=== PATIENT | male | born 1980 | race African-American/Black ===

== ENCOUNTER 2016-11-03 11:41 | Emergency (ER) | payer OTHER ==
[~2016-11-03] VITALS: Ht 177.8 cm; Wt 77.5 kg
[~2016-11-03 11:41] MED LIST: AZITHROMYCIN250 MG PO; BACTRIM,SEPT1 TABLET PO; CLINDAMYCIN HC300 MG PO; KEFLEX500 MG PO; MUPIROCIN15 GM TP; NAPROSYN500 MG PO; NOHOMEMEDS; PREDNISONE20 MG PO; PREDNISONE50 MG PO; PROAIR HFA8.5 GM IH; ROBITUSSIN AC,T10 ML PO; ULTRAM50 MG PO; ZITHROMAX250 MG PO
[2016-11-03] MEDS ORDERED: VENTOLIN HFA18 GM IH (13:14)
[2016-11-03] MEDS ORDERED: PREDNISONE20 MG PO (13:14)
[2016-11-03] MEDS ORDERED: ZITHROMAX Z-PA250 MG PO (13:14)
[2016-11-03 13:29] VITALS: BP 148/95
== END 2016-11-03 13:43 | disposition home or self-care (01) ==
LOC: EME 11:41
DX: J40 Bronchitis, not specified as acute or chronic (principal); F17.200 Nicotine dependence, unspecified, uncomplicated
CPT/HCPCS: 71020; 94640; 99281; 99283; J7512; J7644

== ENCOUNTER 2017-06-09 17:54 | Emergency (ER) | payer OTHER ==
[~2017-06-09] VITALS: Ht 177.8 cm; Wt 79.0 kg
[~2017-06-09 17:54] MED LIST changes: +VENTOLIN HFA18 GM IH; +ZITHROMAX Z-PA250 MG PO
[2017-06-09] MEDS ORDERED: PREDNISONE50 MG PO (20:08)
[2017-06-09 20:19] VITALS: BP 132/89
== END 2017-06-09 20:23 | disposition home or self-care (01) ==
LOC: EME 17:54
DX: J45.909 Unspecified asthma, uncomplicated (principal); F17.200 Nicotine dependence, unspecified, uncomplicated
CPT/HCPCS: 94644; 99281; 99284; J0171; J1100; J3475; J7644

== ENCOUNTER 2017-11-14 01:28 | Inpatient (IN) | payer OTHER ==
[~2017-11-14] VITALS: Ht 182.9 cm; Wt 94.1 kg
[2017-11-14] VITALS (16 sets, daily range): BP systolic 85–141; BP diastolic 56–87
[2017-11-14 01:47] LABS: BASOPHIL (%) 0.6 % (0-1); EOSINOPHIL (%) 3.9 % (0-5); EOSINOPHIL COUNT 0.3 K/uL (0-0.3); HEMATOCRIT 42.1 % (38.0-50.0); HEMOGLOBIN 12.3 G/DL (12.5-16.6); IMMATURE GRANULOCYTE (%) 0.7 % (0.0-0.7); LYMPHOCYTE (%) 63.7 % (15-42); LYMPHOCYTE COUNT 4.3 K/uL (1.0-2.8); MCH 23.8 PG (29.0-34.0); MCHC 29.2 G/DL (30.0-36.0); MCV 81.6 FL (86-99); MONOCYTE (%) 11.4 % (3-12); MONOCYTE COUNT 0.8 K/uL (0-0.8); NEUTROPHIL (%) 19.7 % (45-76); NEUTROPHIL COUNT 1.3 K/uL (1.8-6.4); PLATELET COUNT 285 K/uL (156-360); RBC DIS.WIDTH-CV 15.9 % (11.8-14.6); RBC DIS.WIDTH-SD 47.4 % (39-53); RED BLOOD COUNT 5.16 M/uL (4.00-5.50); WHITE BLOOD COUNT 6.7 K/uL (4.1-10.2)
[2017-11-14 01:57] LABS: INTER. NORMALIZED RATIO 1.3
[2017-11-14 02:00] LABS: PTT 33.6 SEC (25-37)
[2017-11-14 02:13] LABS: APPEARANCE CLOUDY ((CLEAR)); BILIRUBIN NEGATIVE; BLOOD MODERATE; COLOR YELLOW ((YELLOW)); GLUCOSE (STRIP) NEGATIVE; KETONES NEGATIVE; LEUKOCYTES NEGATIVE; NITRITE NEGATIVE; PROTEIN (STRIP) >=500; SPECIFIC GRAVITY 1.027 (1.000-1.030); UROBILINOGEN 0.2 MG/DL (0.2-1.0)
[2017-11-14 02:13] LABS: TROP-I INTERPRETATION NEGATIVE; TROPONIN-I 0.01 ng/mL (0.0-0.30)
[2017-11-14 02:24] LABS: AMPHETAMINE NEGATIVE (500 ng/mL); BENZODIAZEPINES PRESUMPTIVE POSITIVE (150 ng/mL); COCAINE PRESUMPTIVE POSITIVE (150 ng/mL); METHADONE NEGATIVE (200 ng/mL); METHAMPHETAMINE PRESUMPTIVE POSITIVE (500 ng/mL); OPIATES (MORPHINE) PRESUMPTIVE POSITIVE (100 ng/mL); PHENCYCLIDINE PRESUMPTIVE POSITIVE (25 ng/mL); THC CANNABINOIDS PRESUMPTIVE POSITIVE (50 ng/mL); TRICYCLIC ANTIDEPRESSANTS NEGATIVE (300 ng/mL)
[2017-11-14 02:25] LABS: BARBITURATES NEGATIVE (200 ng/mL); BUPRENORPHINE NEGATIVE (10 ng/mL); OXYCODONE NEGATIVE (100 ng/mL); PROPOXYPHENE NEGATIVE (300 ng/mL)
[2017-11-14 02:38] LABS: BACTERIA 3+ /HPF; EPITHELIAL CELLS 1+ /HPF; MUCUS 1+ /LPF; RED BLOOD CELLS 20-30 /HPF (0-5); UCUL ADDED? YES; WHITE BLOOD CELLS 15-20 /HPF (0-5)
[2017-11-14 02:40] LABS: AMYLASE 141 IU/L (1-118); CHLORIDE 101 mEq/L (99-109); POTASSIUM 4.4 mEq/L (3.7-5.4); SODIUM 141 mEq/L (136-147)
[2017-11-14 02:41] LABS: GLUCOSE 68 mg/dL (70-99)
[2017-11-14 02:45] LABS: CREATININE 2.1 mg/dL (0.6-1.3); GFR ESTIMATE (CALCULATED) 46 mL/min/ (58.99-99999); SERUM ETHYL ALCOHOL < 10 mg/dL
[2017-11-14 02:46] LABS: UREA NITROGEN (BUN) 14 mg/dL (9-23)
[2017-11-14 02:48] LABS: LIPASE 41 U/L (1.0-51.0)
[2017-11-14 04:08] LABS: BASE EXCESS -7.9 mEq/L (-3 to +3); BICARBONATE 22.4 mEq/L (22-26); CARBOXY HGB 3.9 % (0-5); COMMENTS - BLOOD GASES C+; DEVICE VENT; FI02 100 %; MECHANICAL RATE 18 resp/min; METHEMOGLOBIN 1.4 % (0-1.5); MODE A/C; PCO2 69 mm Hg (35-45); PEEP 5 CM/H20; PO2 338 mm Hg (80-100); SITE RR; TIDAL VOLUME 450 ML; TOTAL RESP RATE 18 resp/min; pH 7.12 (7.35-7.45)
[2017-11-14 05:00] LABS: BASE EXCESS -8.5 mEq/L (-3 to +3); BICARBONATE 20.2 mEq/L (22-26); CARBOXY HGB 3.4 % (0-5); COMMENTS - BLOOD GASES C+; DEVICE VENT; FI02 80 %; MECHANICAL RATE 30 resp/min; METHEMOGLOBIN 1.5 % (0-1.5); MODE A/C; PCO2 54 mm Hg (35-45); PEEP 5 CM/H20; PO2 59 mm Hg (80-100); SITE RR; TIDAL VOLUME 450 ML; TOTAL RESP RATE 30 resp/min; pH 7.18 (7.35-7.45)
[2017-11-14 05:47] LABS: BENZODIAZEPINES, URINE SCREEN POSITIVE (200 ng/mL)
[2017-11-14 08:23] LABS: HEMOGLOBIN 13.7 G/DL (12.5-16.6); MCH 23.3 PG (29.0-34.0); MCHC 29.8 G/DL (30.0-36.0); MCV 78.4 FL (86-99); PLATELET COUNT 247 K/uL (156-360); RBC DIS.WIDTH-CV 16.6 % (11.8-14.6); RBC DIS.WIDTH-SD 46.3 % (39-53); RED BLOOD COUNT 5.87 M/uL (4.00-5.50); WHITE BLOOD COUNT 4.1 K/uL (4.1-10.2)
[2017-11-14 08:30] LABS: INTER. NORMALIZED RATIO 1.4
[2017-11-14 08:33] LABS: PTT 31.4 SEC (25-37)
[2017-11-14 08:55] LABS: ANISOCYTOSIS 2+; ATYPICAL LYMPHOCYTE 5.6 %; BAND NEUTROPHILS 28.1 % (0-8.0); BURR CELLS 1+; EOSINOPHIL ABS CT 0; EOSINOPHILS 0.9 % (0-5.0); LYMPHOCYTES 16.8 % (15.0-45.0); MONOCYTES 4.7 % (0-9.0); OVALOCYTES 1+; PLAT.SUFFICIENCY ADEQUATE; POIKILOCYTOSIS 1+; SEG.NEUTROPHILS 43.9 % (46.0-76.0)
[2017-11-14 09:13] LABS: TROP-I INTERPRETATION POSITIVE; TROPONIN-I 1.15 ng/mL (0.0-0.30)
[2017-11-14 09:31] LABS: ALBUMIN 3.7 G/DL (3.2-4.8); ALKALINE PHOSPHATASE 155 IU/L (3-129); ALT (GPT) 964 IU/L (3-49); CHLORIDE 101 MEQ/L (99-109); CREATININE 2.3 MG/DL (0.6-1.3); GFR ESTIMATE (CALCULATED) 42 mL/min/ (58.99-99999); MAGNESIUM 1.8 mg/dl (1.3-2.7); PHOSPHORUS 6.9 mg/dL (2.5-4.9); SODIUM 137 MEQ/L (136-147); TOTAL BILIRUBIN 0.6 MG/DL (0.0-1.0); TOTAL CK 17921 IU/L (1-294); TOTAL PROTEIN 6.6 G/DL (6.4-8.3); UREA NITROGEN (BUN) 20 mg/dL (9-23)
[2017-11-14 09:35] LABS: GLUCOSE 86 mg/dL (70-99); POTASSIUM 5.6 MEQ/L (3.7-5.4)
[2017-11-14 09:36] LABS: AST (GOT) 1545 IU/L (2-34); CREATINE KINASE 17921 IU/L (1-294)
[2017-11-14 10:13] LABS: DIRECT BILIRUBIN 0.3 mg/dL (0.0-0.3)
[2017-11-14 10:22] LABS: CK-MB 278.5 ng/mL (0.0-4.9); CKMB RELATIVE INDEX 1.6 (0.0-3.9)
[2017-11-14 10:44] LABS: BASE EXCESS -6.3 mEq/L (-3 to +3); CARBOXY HGB 2.3 % (0-5); DEVICE VENT; FI02 50 %; MECHANICAL RATE 30 resp/min; METHEMOGLOBIN 1.3 % (0-1.5); MODE AC; PCO2 36 mm Hg (35-45); PO2 83 mm Hg (80-100); SITE ALINE; TOTAL RESP RATE 38 resp/min; pH 7.33 (7.35-7.45)
[2017-11-14 10:45] LABS: PEEP 10 CM/H20; TIDAL VOLUME 450 ML
[2017-11-14 11:45] LABS: C DIFF TOXIN NEGATIVE (NEGATIVE)
[2017-11-14 15:48] LABS: HEMATOCRIT 34.9 % (38.0-50.0); MCH 24.2 PG (29.0-34.0); MCHC 31.5 G/DL (30.0-36.0); MCV 76.9 FL (86-99); PLATELET COUNT 188 K/uL (156-360); RBC DIS.WIDTH-CV 16.1 % (11.8-14.6); RBC DIS.WIDTH-SD 44.2 % (39-53); RED BLOOD COUNT 4.54 M/uL (4.00-5.50); WHITE BLOOD COUNT 6.9 K/uL (4.1-10.2)
[2017-11-14 15:54] LABS: BASE EXCESS -8.1 mEq/L (-3 to +3); BICARBONATE 17.8 mEq/L (22-26); CARBOXY HGB 1.6 % (0-5); DEVICE VENT; FI02 50 %; MECHANICAL RATE 30 resp/min; METHEMOGLOBIN 1.5 % (0-1.5); MODE AC; PCO2 37 mm Hg (35-45); PO2 62 mm Hg (80-100); SITE RR; TIDAL VOLUME 450 ML; TOTAL RESP RATE 34 resp/min; pH 7.29 (7.35-7.45)
[2017-11-14 15:55] LABS: COMMENTS - BLOOD GASES A+C+; PEEP 10 CM/H20
[2017-11-14 16:31] LABS: ALBUMIN 2.9 G/DL (3.2-4.8); ALT (GPT) 942 IU/L (3-49); AMYLASE 208 IU/L (1-118); CHLORIDE 109 MEQ/L (99-109); LIPASE 22 U/L (1.0-51.0); SODIUM 138 MEQ/L (136-147); UREA NITROGEN (BUN) 27 mg/dL (9-23)
[2017-11-14 16:40] LABS: AST (GOT) 1591 IU/L (2-34); CREATININE 3.1 MG/DL (0.6-1.3); GFR ESTIMATE (CALCULATED) 30 mL/min/ (58.99-99999); GLUCOSE 142 mg/dL (70-99); POTASSIUM 4.2 MEQ/L (3.7-5.4); TOTAL BILIRUBIN 0.8 MG/DL (0.0-1.0); TOTAL PROTEIN 5.6 G/DL (6.4-8.3)
[2017-11-14 16:41] LABS: ALKALINE PHOSPHATASE 91 IU/L (3-129)
[2017-11-14 19:41] LABS: CK-MB 241.6 ng/mL (0.0-4.9)
[2017-11-14 19:44] LABS: TROP-I INTERPRETATION POSITIVE; TROPONIN-I 2.44 ng/mL (0.0-0.30)
[2017-11-14 20:44] LABS: CKMB RELATIVE INDEX 1.9 (0.0-3.9); CREATINE KINASE 12925 IU/L (1-294); TOTAL CK 12925 IU/L (1-294)
[2017-11-15] VITALS (9 sets, daily range): BP systolic 97–173; BP diastolic 59–106
[2017-11-15 00:10] LABS: BICARBONATE 20.4 mEq/L (22-26); CARBOXY HGB 1.1 % (0-5); COMMENTS - BLOOD GASES C+; DEVICE VENT; FI02 60 %; MECHANICAL RATE 32 resp/min; METHEMOGLOBIN 1.4 % (0-1.5); MODE ACVC; PCO2 30 mm Hg (35-45); PEEP 10 CM/H20; PO2 179 mm Hg (80-100); SITE A-LINE; TIDAL VOLUME 600 ML; TOTAL RESP RATE 32 resp/min; pH 7.44 (7.35-7.45)
[2017-11-15 00:53] LABS: TROP-I INTERPRETATION POSITIVE
[2017-11-15 00:55] LABS: CK-MB 211.2 ng/mL (0.0-4.9)
[2017-11-15 00:58] LABS: TROPONIN-I 1.53 ng/mL (0.0-0.30)
[2017-11-15 01:20] LABS: CREATINE KINASE 23298 IU/L (1-294)
[2017-11-15 06:02] LABS: HEMATOCRIT 31.8 % (38.0-50.0); HEMOGLOBIN 10.2 G/DL (12.5-16.6); MCH 23.6 PG (29.0-34.0); MCHC 32.1 G/DL (30.0-36.0); MCV 73.6 FL (86-99); RBC DIS.WIDTH-CV 15.4 % (11.8-14.6); RBC DIS.WIDTH-SD 40.7 % (39-53); RED BLOOD COUNT 4.32 M/uL (4.00-5.50); WHITE BLOOD COUNT 14.7 K/uL (4.1-10.2)
[2017-11-15 06:08] LABS: TROP-I INTERPRETATION POSITIVE
[2017-11-15 06:27] LABS: ALBUMIN 2.6 G/DL (3.2-4.8); ALKALINE PHOSPHATASE 67 IU/L (3-129); ALT (GPT) 1400 IU/L (3-49); AST (GOT) 2085 IU/L (2-34); CHLORIDE 104 MEQ/L (99-109); CREATININE 4.5 MG/DL (0.6-1.3); GFR ESTIMATE (CALCULATED) 19 mL/min/ (58.99-99999); GLUCOSE 164 mg/dL (70-99); POTASSIUM 4.2 MEQ/L (3.7-5.4); SODIUM 139 MEQ/L (136-147); TOTAL BILIRUBIN 0.7 MG/DL (0.0-1.0); TOTAL PROTEIN 5.2 G/DL (6.4-8.3); UREA NITROGEN (BUN) 42 mg/dL (9-23); VANCOMYCIN, TROUGH 17.4 MCG/ML (10-20)
[2017-11-15 06:48] LABS: PLAT.SUFFICIENCY ADEQUATE; PLATELET COUNT 173 K/uL (156-360)
[2017-11-15 08:18] LABS: CK-MB 205.2 ng/mL (0.0-4.9)
[2017-11-15 08:53] LABS: CKMB RELATIVE INDEX 0.8 (0.0-3.9); TOTAL CK 26550 IU/L (1-294)
[2017-11-15 08:54] LABS: CREATINE KINASE 26550 IU/L (1-294)
[2017-11-15 10:19] LABS: BASE EXCESS -1.8 mEq/L (-3 to +3); BICARBONATE 21.3 mEq/L (22-26); CARBOXY HGB 1.2 % (0-5); METHEMOGLOBIN 1.7 % (0-1.5); PCO2 30 mm Hg (35-45); PO2 83 mm Hg (80-100); pH 7.46 (7.35-7.45)
[2017-11-15 10:20] LABS: DEVICE 840; FI02 30 %; MECHANICAL RATE 32 resp/min; MODE A/C; PEEP 10 CM/H20; SITE LEFTFALINE; TIDAL VOLUME 600 ML; TOTAL RESP RATE 32 resp/min
[2017-11-15 15:17] LABS: BASE EXCESS -1.8 mEq/L (-3 to +3); BICARBONATE 21.1 mEq/L (22-26); CARBOXY HGB 1.4 % (0-5); DEVICE VENT; FI02 30 %; MECHANICAL RATE 32 resp/min; MODE AC; PCO2 29 mm Hg (35-45); PEEP 10 CM/H20; PO2 101 mm Hg (80-100); SITE LF; TIDAL VOLUME 600 ML; TOTAL RESP RATE 32 resp/min; pH 7.47 (7.35-7.45)
[2017-11-15 15:42] LABS: CHLORIDE 101 MEQ/L (99-109); GLUCOSE 127 mg/dL (70-99); POTASSIUM 4.3 MEQ/L (3.7-5.4); SODIUM 138 MEQ/L (136-147); UREA NITROGEN (BUN) 50 mg/dL (9-23)
[2017-11-15 15:43] LABS: CREATININE 5.6 MG/DL (0.6-1.3); GFR ESTIMATE (CALCULATED) 15 mL/min/ (58.99-99999); MAGNESIUM 1.3 mg/dl (1.3-2.7); PHOSPHORUS 3.8 mg/dL (2.5-4.9)
[2017-11-15 19:10] LABS: CREATINE KINASE 24210 IU/L (1-294)
[2017-11-16] VITALS (9 sets, daily range): BP systolic 117–183; BP diastolic 66–123
[2017-11-16 07:10] LABS: BASE EXCESS -7.2 mEq/L (-3 to +3); BICARBONATE 16.9 mEq/L (22-26); CARBOXY HGB 1.6 % (0-5); METHEMOGLOBIN 1.5 % (0-1.5); PCO2 28 mm Hg (35-45); PO2 112 mm Hg (80-100); pH 7.39 (7.35-7.45)
[2017-11-16 07:11] LABS: DEVICE 840 PB; FI02 30 %; MECHANICAL RATE 26 resp/min; MODE AC; PEEP 10 CM/H20; SITE L FEMORAL ALINE; TIDAL VOLUME 600 ML; TOTAL RESP RATE 26 resp/min
[2017-11-16 07:39] LABS: HEMATOCRIT 28.8 % (38.0-50.0); HEMOGLOBIN 9.5 G/DL (12.5-16.6); MCH 23.6 PG (29.0-34.0); MCV 71.6 FL (86-99); RBC DIS.WIDTH-CV 15.2 % (11.8-14.6); RBC DIS.WIDTH-SD 39.2 % (39-53); RED BLOOD COUNT 4.02 M/uL (4.00-5.50); WHITE BLOOD COUNT 16.6 K/uL (4.1-10.2)
[2017-11-16 08:01] LABS: CHLORIDE 100 MEQ/L (99-109); GLUCOSE 154 mg/dL (70-99); MAGNESIUM 1.4 mg/dl (1.3-2.7); POTASSIUM 3.9 MEQ/L (3.7-5.4); SODIUM 139 MEQ/L (136-147); UREA NITROGEN (BUN) 67 mg/dL (9-23)
[2017-11-16 08:02] LABS: CREATININE 7.4 MG/DL (0.6-1.3); GFR ESTIMATE (CALCULATED) 11 mL/min/ (58.99-99999)
[2017-11-16 08:05] LABS: ANISOCYTOSIS 1+; BAND NEUTROPHILS 21.1 % (0-8.0); EOSINOPHIL ABS CT 0; LYMPHOCYTES 6.1 % (15.0-45.0); MONOCYTES 3.5 % (0-9.0); OVALOCYTES 1+; PLAT.SUFFICIENCY DECREASED; PLATELET COUNT 135 K/uL (156-360); POIKILOCYTOSIS 1+; SMUDGE CELLS 7.9
[2017-11-16 08:37] LABS: SEG.NEUTROPHILS 69.3 % (46.0-76.0)
[2017-11-16 09:06] LABS: ALT (GPT) 923 IU/L (3-49); AST (GOT) 917 IU/L (2-34)
[2017-11-16 09:27] LABS: ALKALINE PHOSPHATASE 59 IU/L (3-129)
[2017-11-17] VITALS: BP 154/91
== END 2017-11-17 01:52 | DRG 917 ==
LOC: EME → EDBD 01:28 → EME 01:28 → EDOF 02:22 → 4WEST 02:22 → ENRESERV 02:23 → 4WEST 03:29
PROVIDERS: Emergency Medicine; Internal Medicine Critical Care Medicine; Obstetrics & Gynecology; Surgery
PROC: 0B21XEZ Change Endotracheal Airway in Trachea, External Approach (ICD-10-PCS; principal; 2017-11-14)
PROC: 02HV33Z Insertion of Infusion Device into Superior Vena Cava, Percutaneous Approach (ICD-10-PCS; principal; 2017-11-14)
PROC: 0BH17EZ Insertion of Endotracheal Airway into Trachea, Via Natural or Artificial Opening (ICD-10-PCS; principal; 2017-11-14)
PROC: 04HY32Z Insertion of Monitoring Device into Lower Artery, Percutaneous Approach (ICD-10-PCS; principal; 2017-11-14)
PROC: 5A1945Z Respiratory Ventilation, 24-96 Consecutive Hours (ICD-10-PCS; 2017-11-14)
DX: T40.601A Poisoning by unspecified narcotics, accidental (unintentional), initial encounter (principal); I46.8 Cardiac arrest due to other underlying condition; J69.0 Pneumonitis due to inhalation of food and vomit; G93.1 Anoxic brain damage, not elsewhere classified; N17.9 Acute kidney failure, unspecified; E87.4 Mixed disorder of acid-base balance; E83.51 Hypocalcemia; T42.4X1A Poisoning by benzodiazepines, accidental (unintentional), initial encounter; M62.82 Rhabdomyolysis; G93.6 Cerebral edema; Z66 Do not resuscitate; J40 Bronchitis, not specified as acute or chronic; J45.909 Unspecified asthma, uncomplicated; Z51.5 Encounter for palliative care; G25.3 Myoclonus; J96.01 Acute respiratory failure with hypoxia; R57.8 Other shock; G83.9 Paralytic syndrome, unspecified; E87.70 Fluid overload, unspecified; G92 Toxic encephalopathy; Z88.1 Allergy status to other antibiotic agents; Z88.2 Allergy status to sulfonamides
CPT/HCPCS: 36600; 70450; 71045; 71250; 72125; 74176; 80048; 80048 91; 80053; 80202; 81003; 82150; 82248; 82330; 82550; 82550 91; 82553; 82803; 82948; 83605; 83690; 83735; 83880; 84075; 84100; 84450; 84460; 84484; 84999; 85025; 85025 91; 85027; 85610; 85730; 86850; 86900; 86901; 87040; 87070; 87077; 87086; 87186; 87205; 87493; 87641; 87801; 93005; 94002; 94003; 94640; 94640 76; 95819; 99202; 99281; 99285; C1751; C1788; G0480; J0360; J0610; J0692; J1650; J1720; J1815; J1940; J1953; J1956; J2060; J2250; J2270; J2310; J2704; J3370; J7030; J7050; J7070; J7120; S0030